=== PATIENT | female | born 1965 | race Caucasian/White ===

== ENCOUNTER 2016-05-20 07:51 | Observation (INO) | payer OTHER ==
[2016-05-20] VITALS (10 sets, daily range): BP systolic 110–157; BP diastolic 68–85; PULSE 70–110; RESP 13–18; O2SAT 94–98
[~2016-05-20] VITALS: Ht 160 cm; Wt 115.5 kg
[~2016-05-20 07:51] MED LIST: ESTR1TAB24 PO; FLUO10CA20 PO; LISI-571 PO; OXYC1TAB24 PO; PANT40TA2 PO
[2016-05-20 09:00] LABS: INR 0.94 ratio
--- NOTE | 2016-05-20 09:03 | DRSVH ---
PROCEDURE: CT BRAIN WITHOUT CONTRAST ([id number]) INDICATIONS: acute onset BLACK TECHNIQUE: Noncontrast 4.5 mm thick angled axial sections acquired from the foramen magnum to the vertex, with c oronal reformats. COMPARISON: None. FINDINGS: Image quality: Excellent. CSF spaces: Basal cisterns are patent. No extra-axial fluid collections. Ventricles are normal in size and shape. Brain: No midline shift. No intracranial masses or hemorrhage. Graham-white matter interface is norm al. Skull and face: Calvarium and visualized facial bones are intact, without suspicious lesions. Sinuses: Visualized sinuses and mastoids are clear. Incidental right maxillary osteoma. IMPRESSION: No acute intracranial process. Dictated by: Zoran Justin M.D. on 05/20/2016 at 8:59 Approved by: Zoran Justin M.D. on 05/20/2016 at 9:02
[2016-05-20 09:09] LABS: TROPONIN T 0.01 ug/L (0.0-0.011)
[2016-05-20 09:13] LABS: BASOPHILS % (AUTO) 0.3 % (0-3); MONOCYTES % (AUTO) 7.1 % (4-12); Mean Corpuscular Hemoglobin 29.1 pg (27.0-35.0); Mean Corpuscular Volume 86.9 fL (81-100); Platelet Count 280 bil/L (150-400)
--- NOTE | 2016-05-20 09:19 | ED.REPORT ---
HPI-Chest Pain 40 and Over Date of Service May 20, 2016 ED Provider: Marcelle Alexis MD Patient is a 50 year old female w/ a hx of HTN who presents to the ED with chest pain starting at 0600 this morning while sitting at the ED coffee stand. Pt is an employee at [employer]. She rates her pain at 7/10 and claims it feels "tight " and does not radiate into her jaw, arms or back. She c/o associated 6/10, "pounding," headache that is increasing in severity. The headache started first , followed by blurred vision, then chest pain. She denies any numbness or tingling. She was evaluated for similar symptoms 3 months ago (02/18/16) and was not admitted. Following the previous episode, she followed up with her PCP and had a treadmill test which revealed no acute findings. She did not receive an echocardiogram at the time. She has never had any cardiac issues previously. Her PCP is Stacie Kruse. Nursing Notes Stated Complaint: BLURRED VISION/HEADACHE/BP HIGH Chief Complaint: Chest Pain Nursing Notes Reviewed: Yes Allergies: Coded Allergies: Iodinated Contrast Media - IV Dye (Verified Allergy, Mild, Hives, 03/18/15 ) Patient says CT scan at [facility] with contrast caused hives. Scheduled Fluoxetine (Fluoxetine) 10 Mg Capsule 10 MG PO DAILY Gabapentin (Gabapentin) Unknown Strength Capsule Unknown Dose PO DAILY Hydrochlorothiazide (Hydrochlorothiazide) 25 Mg Tablet 25 MG PO DAILY Pantoprazole DR (Protonix) 40 Mg Tablet 40 MG PO DAILY Scheduled PRN oxyCODONE-Acetaminophen 5-325 mg (oxyCODONE-Acetaminophen 5-325 mg) 1 Each Tablet 1-2 TAB PO Q6H PRN PRN For Pain General Time Seen by MD: 08:10 Chief Complaint Chest pain Hx Obtained From: Patient Arrived By: Walk-in Sudden in Onset?: Yes Onset Occurred: Just prior to arrival Symptom Duration: Since onset Radiation: : Does not radiate Severity: Current: Pain level 7 out of 10 Recent Healthcare: Recent doctor visit Similar Sx Previous: Yes Past Medical History Past Medical History Hypertension Past Surgical History Hysterectomy Hip replacements bilaterally Family History Noncontributory Smoking History Never Smoker Social 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 Physical Exam Initial Vital Signs Vital Signs (First) Date Time Temp Pulse Resp B/P Pulse Ox O2 Delivery O2 Flow Rate FiO2 05/20/16 08:07 36.7 110 18 157/85 96 Room Air Initial VS: Reviewed Head / Eyes: Atraumatic, Normocephalic, PERRL ENT: Mucous membranes moist, Conjunctiva normal, No scleral icterus Neck: Supple, Non-tender, Full range of motion Extremities: Vascular intact, Neuro intact, No swelling, No tenderness Skin: Warm, Dry, No cyanosis Neurologic: Alert, Oriented, Nonfocal Psychiatric: Mood/affect normal, Behavior normal, Normal thought content General/Constitutional: Awake, Alert, Well appearing, Cooperative, Not toxic appearing Distress / Hydration: Positive: Distress mild Respiratory / Chest: Atraumatic, Breath sounds NL, Breath sounds = bilat, No respiratory distress, No rales, No rhonchi, No wheezing, No retractions Cardiovascular: Heart rate NL, Regular rhythm, Heart sounds NL, No gallop, No murmurs, No rubs Abdomen: Atraumatic, Soft, Non-tender, No guarding, No rebound, BS normoactive Interpretation & Diagnostics Lab Results Interpretation Result Diagram: 05/20/16 0830 05/20/16 0830 Test 05/20/16 08:30 05/20/16 09:00 White Blood Count 7.1th/mm3 (3.8-10.1) Red Blood Count 4.57mil/mm3 (3.90-5.20) Hemoglobin 13.3g/dL (12.0-15.6) Hematocrit 39.7% (35.0-46.0) Mean Corpuscular Volume 86.9fL (81-100) Mean Corpuscular Hemoglobin 29.1pg (27.0-35.0) Mean Corpuscular Hemoglobin Concent 33.5% (32.0-37.0) Red Cell Distribution Width 14.0% (12.3-15.4) Platelet Count 280bil/L (150-400) Neutrophils (%) (Auto) 52.0% (40-74) Lymphocytes (%) (Auto) 38.3% (14-46) Monocytes (%) (Auto) 7.1% (4-12) Eosinophils (%) (Auto) 2.0% (0-5) Basophils (%) (Auto) 0.3% (0-3) Prothrombin Time 10.0sec (8.1-12.5) Prothromb Time International Ratio 0.94ratio Sodium Level 139mEq/L (134-144) Potassium Level 4.1mEq/L (3.5-5.2) Chloride Level 99mEq/L (97-108) Carbon Dioxide Level 25mmol/L (18-29) Blood Urea Nitrogen 12mg/dL (6-24) Creatinine 0.74mg/dL (0.57-1.00) Estimat Glomerular Filtration Rate 119mL/min (>59) Glucose Level 118mg/dL (60-99) Calcium Level 9.1mg/dL (8.5-10.1) Magnesium Level 1.8mg/dL (1.6-2.6) Total Bilirubin 0.2mg/dL (0.0-1.2) Aspartate Amino Transf (AST/SGOT) 34U/L (0-50) Alanine Aminotransferase (ALT/SGPT) 51U/L (0-32) Alkaline Phosphatase 80U/L (25-150) Troponin T 0.010ug/L (0.0-0.011) Total Protein 7.5g/dL (6.4-8.4) Albumin 4.1g/dL (3.4-5.0) Hold Lawson Top Tube Received (Received) Hold Urine Received (Received) ECG Interpretation Time: 08:30 Interpreted by: ED physician Normal ECG Interpretation: Normal ECG w/ rate of... (88), No acute ischemic changes, No change from prior ECGs X-Ray Chest Interpretation Chest Xray Interpretation: IMPRESSION: No acute cardiopulmonary disease. Dictated by: Panchito LAU Interpreted: Blas Chapman MD on 05/20/2016 at 10:16 Transcribed by: SHEELA on 05/20/2016 at 10:17 View: Portable Interpretation / Wet Read by: Interpret - Radiologist CT Head Interpretation IMPRESSION: No acute intracranial process. Dictated by: Zoran Justin M.D. on 05/20/2016 at 8:59 Approved by: Zoran Justin M.D. on 05/20/2016 at 9:02 Re-Eval/Medical Decision Med Decision/Clinical Course Presents with chest pain off and Hemoccult This morning. Similar episode in January with follow-up simple treadmill test and recurrent chest pain at peak maximal exertion without equivalent EKG changes. Reviewed with Dr. Luna, given her ongoing hypertension her now second ED visit recommendation is hospitalization rule out with serial troponins and then a nuclear medicine stress test tomorrow if all troponins are unremarkable. Care is reviewed with the patient is agreeable with plan Time of Eval: 12:05 Patient Status: Condition unchanged, Mild relief Re-Evaluation/Progress Note: Pt rechecked. Even though imaging and labs are normal, due to elevated blood pressure, plan to keep pt in the hospital for further testing and evaluation tomorrow. Consultation : Referral / Consult Name: Nelson Hauser MD Consulted With: Hospitalist Call Returned at: 12:41 Patent Agent: Agrees with eval, Agrees with plan Note: Case discussed. Agrees with plan to admit pt for further monitoring and evaluation. Counseled Regarding: Diagnosis, Lab results, Need for admission Discharge & Departure Primary Impression: Chest pain Additional Impression: Headache Ruled Out: Stroke, Intracranial hemorrhage, STEMI (ST elevation myocardial infarction) Disposition: ADMITTED TO HOSPITAL Discharge Condition All VS Reviewed: Yes Condition: Stable Referrals: Stacie Kruse (PCP) Scribe Attestation Portion of this note were transcribed by Brianna Aguero. I, Dr. Alexis, personally performed the history, physical exam, and medical decision-making: I reviewed and confirmed the accuracy for the information in the transcribed note. Signed by: krishna Johnston, 05/20/16 1300 copies to: Stacie Kruse Shawna L MD May 20, 2016 09:19 BRIANNA AGUERO May 20, 2016 09:40
[2016-05-20 09:20] LABS: Magnesium 1.8 mg/dL (1.6-2.6)
--- NOTE | 2016-05-20 10:17 | DRSVH ---
PROCEDURE: X-RAY CHEST ONE VIEW, PORTABLE ([id number]) INDICATIONS: cp TECHNIQUE: One view of the chest was acquired. COMPARISON: [facility], CR, XR CHEST 1VW (PORTABLE), 02/18/2016, 9:46. FINDINGS: Surgical changes and devices: None. Lungs and pleura: No pleural effusions or pneumothorax. Lungs are clear. Mediastinum: Mediastinal contours appear normal. Heart size is normal. Bones and chest wall: No suspicious bony lesions. Overlying soft tissues appear unremarkable. IMPRESSION: No acute cardiopulmonary disease. Dictated by: Panchito Lopez [facility] Interpreted: Blas Chapman MD on 05/20/2016 at 10:16 Transcribed by: SHEELA on 05/20/2016 at 10:17 Approved by: Blas Chapman M.D. on 05/20/2016 at 17:46
[2016-05-20] MEDS ORDERED: HYDR25TA4 PO (10:56)
[2016-05-20] MEDS ORDERED: GABA-500 PO (10:56)
[2016-05-20] MEDS ORDERED: GABA-502 PO (13:19)
[2016-05-20] MEDS ORDERED: FLUO20CA25 PO (13:19)
[2016-05-20] MEDS ORDERED: IBUP200C PO (13:19)
[2016-05-20] MEDS ORDERED: Aspirin-Caffeine-Butalbital Tablet PO PRN ×2 (14:40→20:00)
[2016-05-20] MEDS ORDERED: Aspirin-Caffeine-Butalbital Tablet PO ONE (14:40)
--- NOTE | 2016-05-20 15:20 | PCM.HPMED ---
Subjective Date of Service May 20, 2016 Primary Provider: Admitting Physician: Primary Care Physician: Stacie Kruse Attending Physician: Chief Complaint: Severe headache and chest pain History of Present Illness: 50yo F w/ HTN, depression, GERD p/w acute onset of BLACK, chest pain. 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 no weakness on arms or legs. pt had similar episode 6month ago. but no BLACK since then. pt tried tylenol but BLACK continued. after 1hrs after BLACK started, pt started feeing chest pain in mid chest, tightness, pt was still sitting on the chair. 6/10, non-radiating, a/w mild SOB, palpitation, nausea but no vomiting. chest pain only lasted 30min, resolved completely. Because of ongoing BLACK, CP, pt came to ED. Pt also stated that recently pt had one year anniversary of his dad, which made her emotional, stressful, could possibly triggered her BLACK, denied lack of sleeping, any toxic habits possibly related to BLACK. Of note, pt has significant FHx of Migraine father, sister, nephew, niece. no hx of heart dz, Last ED visit in January 2016 with chest pain, ruled out PE with CTA premedicated with solu-medrol/benadryl prior to study, sent home with NSAID had stress test done by PCP, result was normal. pt used to take hormone pill s/p hysterectomy, not anymore. not taking aspirin. no hx of stroke/ heart dz in the past. In ED, VS 157/85, 110, 18, 96% on RA, afebrile, pt received [id number], toradol/ benadry, nitro SL. pt thinks that combination of med helped her BLACK mildly but still has BLACK at the time of encounter. Review of Systems: Pertinent positives as noted in history of present illness. All other systems were reviewed and are negative Allergies Coded Allergies: Iodinated Contrast Media - IV Dye (Verified Allergy, Mild, Hives, 03/18/15 ) Patient says CT scan at [facility] with contrast caused hives. PMH Described above in history of present illness Past Surgical History Hysterectomy Hip replacements bilaterally Family History dad/sister/nephew/niece Migraine Smoking History Never Smoker Social History Drug Use: Denies drug use Other Social History: Good social support, Local resident lives with , Ambulatory Status Independent Social History Hx Alcohol Use: Yes (rare) Hx Substance Use: No Smoking Status: Never Smoker Exam Vital Signs Vital Sign - Last Date Time Temp Pulse Resp B/P Pulse Ox O2 Delivery O2 Flow Rate FiO2 05/20/16 10:51 84 13 136/84 94 Room Air 05/20/16 08:07 36.7 Exam middle aged, obese female, comfortably laying down on the bed no JVD, MMM, no LAD RRR, nl s1, s2 no mrg, chest pain mildly reproduced by palpation. CTAB, no w,c S,ND,NT,normoactive BS+ warm, no edema, pulses 2/2 Lab and Diagnostics Result Diagram: 05/20/1630 05/20/16 0830 Assessment & Plan 50yo F w/ HTN, depression, GERD p/w acute onset of BLACK, chest pain. acute, active intractable BLACK, POA, likely met criteria for migraine->4hrs, unilateral, pulsatile, interfering activity, nausea, possible aura. this is at least second episode. CTH negative. no s/s of CVA, seizure. -try with fioricet first then if uncontrolled will do toradol 30, [id number], cocktails -will consider triptain if BLACK continues, cautiously given combination with SSRI -FU with PCP or neurology upon d/c chest pain, POA, acute, EKG NSR, no st/t chg, tropx1 neg, currently CP free -likely related to GERD, will get serial trops, -nitro SL for pain -s/p [id number] in ED, consider to [id number] -will consider stress test tomorrow if clinically suspicion is high, otherwise, no need for inpatient w/u chronic, stable HTN, continue home HCTZ depression, continue fluoxetine dispo: Patient is admitted under observation status with expectation that she will be discharged within 24-48 hours, diet:general, dvt ppx:HSQ Full code Time spent 35 minutes Nelson Hauser MD May 20, 2016 12:46
[2016-05-20] MEDS: MetoCLOpramide 5 mg/mL 2 mL Inj IVPUSH PRN (18:21)
[2016-05-20] MEDS: Heparin 5,000 Unit/mL Inj SUBQ SCH (20:41)
[2016-05-21] VITALS (7 sets, daily range): BP systolic 105–112; BP diastolic 68–74; PULSE 62–80; RESP 16; O2SAT 94–99
--- NOTE | 2016-05-21 04:19 | NUR ---
NOC shift note Patient had uneventful night- slept through most of it. Denied chest pain and headache. Denies dizziness, light-headedness. Remained alert and oriented. Patient is NPO at midnight per MD order, agreeable and compliant. Call light within reach, intentional rounding in place.
[2016-05-21] MEDS: MetoCLOpramide 5 mg/mL 2 mL Inj IVPUSH PRN (07:25)
[2016-05-21] MEDS: Heparin 5,000 Unit/mL Inj SUBQ SCH (08:11)
[2016-05-21] MEDS ORDERED: Pantoprazole 40 mg ER24 Tablet PO SCH (08:30)
[2016-05-21] MEDS ORDERED: ASPIRIN PO (09:18)
[2016-05-21] MEDS ORDERED: BUTALBITAL PO (09:18)
[2016-05-21] MEDS ORDERED: CAFFEINE PO (09:18)
--- NOTE | 2016-05-21 09:21 | PCM.DIMED ---
Discharge Instructions Date of Service May 21, 2016 Dates of Hospitalization May 20, 2016 at 12:51 Discharge Diagnosis Discharge Diagnosis Acute migraine attack chest pain, likely related to GERD Medication Instructions You can take Fioricet 1tab every 4hours as needed for headache Diet Heart Healthy Activity No restrictions Patient Instructions You were hospitalized with acute onset of headache and chest pain, likely related to migraine triggered by recent stress Please note that migraine headache can be triggered by stressful condition, lack of sleep, poor eating, dehydratio, etc. You can try medicine we give. Please consult with your doctor, possibly for referral for neurologist. Follow-up plan Please follow up with your doctor in 2weeks. Follow-up Provider: Stacie Kruse Follow-up with PCP in: 2 weeks Nelson Hauser MD May 21, 2016 09:21
--- NOTE | 2016-05-21 10:20 | NUR ---
Social Work: Screening / D/C Data: Pt is a 50 y/o female admitted for blurred vision/headache/BP high. Pt's PSP is Dr Kruse, pt's insurance is [employer]. EMR reviewed. D/C orders are in. No d/c planning needs identified at this time. CERTIFIED ADAPTED PHYSICAL EDUCATOR will continue to follow if needs arise. Assessment: Pt who is independent at baseline. Plan: Pt will d/c home via POV today with spouse. No d/c planning needs identified at this time. CERTIFIED ADAPTED PHYSICAL EDUCATOR will continue to follow if needs arise. OWEN Oviedo
--- NOTE | 2016-05-21 12:48 | NUR ---
Discharge Reviewed d/c instructions with pt including care notes and new prescriptions, pt signed and given originals, copies to chart. IV d/c intact, tele removed. VS stable at time of d/c, BLACK resolved, no CP. All belongings packed by pt in room and taken with her. Pt walked off unit on foot.
--- NOTE | 2016-05-22 14:19 | PCM.DC.MED ---
Discharge Summary Date of Service May 21, 2016 Dates of Hospitalization Date of Hospital Admission May 20, 2016 at 12:51 Date of Discharge: May 21, 2016 Providers: Admitting Physician: Nelson Guerra MD Primary Care Physician: Stacie Kruse Attending Physician: Nelson Guerra MD Diagnosis at Time of Discharge Diagnosis at Time of Discharge Acute migraine attack chest pain, likely related to GERD HTN depression Procedures XRay, CTs & MRIs PROCEDURE: CT BRAIN WITHOUT CONTRAST ([id number]) INDICATIONS: acute onset BLACK TECHNIQUE: Noncontrast 4.5 mm thick angled axial sections acquired from the foramen magnum to the vertex, with coronal reformats. COMPARISON: None. FINDINGS: Image quality: Excellent. CSF spaces: Basal cisterns are patent. No extra-axial fluid collections. Ventricles are normal in size and shape. Brain: No midline shift. No intracranial masses or hemorrhage. Graham-white matter interface is normal. Skull and face: Calvarium and visualized facial bones are intact, without suspicious lesions. Sinuses: Visualized sinuses and mastoids are clear. Incidental right maxillary osteoma. IMPRESSION: No acute intracranial process. Dictated by: Zoran Justin M.D. on 05/20/2016 at 8:59 Approved by: Zoran Justin M.D. on 05/20/2016 at 9:02 PROCEDURE: X-RAY CHEST ONE VIEW, PORTABLE ([id number]) INDICATIONS: cp TECHNIQUE: One view of the chest was acquired. COMPARISON: [facility], CR, XR CHEST 1VW (PORTABLE), 02/18/2016, 9: 46. FINDINGS: Surgical changes and devices: None. Lungs and pleura: No pleural effusions or pneumothorax. Lungs are clear. Mediastinum: Mediastinal contours appear normal. Heart size is normal. Bones and chest wall: No suspicious bony lesions. Overlying soft tissues appear unremarkable. IMPRESSION: No acute cardiopulmonary disease. Dictated by: Panchito Lopez [facility] Interpreted: Blas Chapman MD on 05/20/2016 at 10: 16 Transcribed by: SHEELA on 05/20/2016 at 10:17 Approved by: Blas Chapman M.D. on 05/20/2016 at 17:46 ECG 12 Lead NSR, no st/t changes Brief History HPI obtained by 05/20 50yo F w/ HTN, depression, GERD p/w acute onset of BLACK, chest pain. 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 no weakness on arms or legs. pt had similar episode 6month ago. but no BLACK since then. pt tried tylenol but BLACK continued. after 1hrs after BLACK started, pt started feeing chest pain in mid chest, tightness, pt was still sitting on the chair. 6/10, non-radiating, a/w mild SOB, palpitation, nausea but no vomiting. chest pain only lasted 30min, resolved completely. Because of ongoing BLACK, CP, pt came to ED. Pt also stated that recently pt had one year anniversary of his dad, which made her emotional, stressful, could possibly triggered her BLACK, denied lack of sleeping, any toxic habits possibly related to BLACK. Of note, pt has significant FHx of Migraine father, sister, nephew, niece. no hx of heart dz, Last ED visit in January 2016 with chest pain, ruled out PE with CTA premedicated with solu-medrol/benadryl prior to study, sent home with NSAID had stress test done by PCP, result was normal. pt used to take hormone pill s/p hysterectomy, not anymore. not taking aspirin. no hx of stroke/ heart dz in the past. In ED, VS 157/85, 110, 18, 96% on RA, afebrile, pt received [id number], toradol/ benadry, nitro SL. pt thinks that combination of med helped her BLACK mildly but still has BLACK at the time of encounter. Hospital Course 50yo F w/ HTN, depression, GERD p/w acute onset of BLACK, chest pain. acute problems Intractable BLACK, symptoms were persistent, pt met criteria for migraine->4hrs, unilateral, pulsatile, interfering activity, nausea, possible aura. Pt also found to have very strong FHx of migraine. This was at least second episode per hx. CTH negative. no s/s of CVA, seizure. pt was tried migrain cocktails with toradol 30, [id number], [id number] iv, had very good response. Fioricet also tried but partially controlled. Triptan was not given due to SSRI tx. Upon d/c, pt denied any headache. Pt was recommended to follow up with PCP or neurology evaluation upon d/c. chest pain, this was followed by BLACK, ischemic w/u all negative including EKG NSR , no st/t chg, tropx1 neg, pt remained chest pain free since admission. pt received [id number] in ED. Given non-anginal nature of pain, minimal ASCVD risks, stress test were recommended as outpatient. chronic, stable HTN, continued home HCTZ depression, continued fluoxetine Exam Vital Signs (Last) Date Time Temp Pulse Resp B/P Pulse Ox O2 Delivery O2 Flow Rate FiO2 05/21/16 09:40 36.6 68 16 112/68 94 Room Air Exam NAD, comfortably laying down on the bed no JVD, MMM, no LAD RRR, nl s1, s2 no mrg CTAB, no w,c S,ND,NT,normoactive BS+ warm, no edema, pulses 2/2 Test 05/20/16 08:30 05/20/16 09:00 05/20/16 20:15 White Blood Count 7.1th/mm3 (3.8-10.1) Red Blood Count 4.57mil/mm3 (3.90-5.20) Hemoglobin 13.3g/dL (12.0-15.6) Hematocrit 39.7% (35.0-46.0) Mean Corpuscular Volume 86.9fL (81-100) Mean Corpuscular Hemoglobin 29.1pg (27.0-35.0) Mean Corpuscular Hemoglobin Concent 33.5% (32.0-37.0) Red Cell Distribution Width 14.0% (12.3-15.4) Platelet Count 280bil/L (150-400) Neutrophils (%) (Auto) 52.0% (40-74) Lymphocytes (%) (Auto) 38.3% (14-46) Monocytes (%) (Auto) 7.1% (4-12) Eosinophils (%) (Auto) 2.0% (0-5) Basophils (%) (Auto) 0.3% (0-3) Prothrombin Time 10.0sec (8.1-12.5) Prothromb Time International Ratio 0.94ratio Sodium Level 139mEq/L (134-144) Potassium Level 4.1mEq/L (3.5-5.2) Chloride Level 99mEq/L (97-108) Carbon Dioxide Level 25mmol/L (18-29) Blood Urea Nitrogen 12mg/dL (6-24) Creatinine 0.74mg/dL (0.57-1.00) Estimat Glomerular Filtration Rate 119mL/min (>59) Glucose Level 118mg/dL (60-99) Calcium Level 9.1mg/dL (8.5-10.1) Magnesium Level 1.8mg/dL (1.6-2.6) Total Bilirubin 0.2mg/dL (0.0-1.2) Aspartate Amino Transf (AST/SGOT) 34U/L (0-50) Alanine Aminotransferase (ALT/SGPT) 51U/L (0-32) Alkaline Phosphatase 80U/L (25-150) Total Protein 7.5g/dL (6.4-8.4) Albumin 4.1g/dL (3.4-5.0) Hold Lawson Top Tube Received (Received) Hold Urine Received (Received) Troponin T < 0.010ug/L (0.0-0.011) Discharge Medications Discharge Medications Fluoxetine (Fluoxetine) 20 Mg Capsule 20 MG PO QAM (Reported) Hydrochlorothiazide (Hydrochlorothiazide) 25 Mg Tablet 25 MG PO QAM (Reported) Pantoprazole DR (Protonix) 40 Mg Tablet 40 MG PO QPM (Reported) As needed ([Aspirin/Caffeine/Butalbital]) 1 TAB TABLET 1 TAB PO Q4H PRN PRN Headache Prescribed by: NELSON GUERRA MD Gabapentin (Gabapentin) 300 Mg Capsule 300 MG PO DAILY PRN PRN For Pain ( Reported) Ibuprofen (Ibuprofen) 200 Mg Capsule 200 MG PO BID PRN PRN For Pain (Reported) Additional med instructions You can take Fioricet 1tab every 4hours as needed for headache Followup Plan Disposition: home Follow-up plan Please follow up with your doctor in 2weeks. Discharge Diet: Heart Healthy Discharge Activity: No restrictions Patient Instructions You were hospitalized with acute onset of headache and chest pain, likely related to migraine triggered by recent stress Please note that migraine headache can be triggered by stressful condition, lack of sleep, poor eating, dehydratio, etc. You can try medicine we give. Please consult with your doctor, possibly for referral for neurologist. Follow-up Provider: Stacie Kruse Follow-up with PCP in: 2 weeks Time spent 65min Nelson Guerra MD May 22, 2016 14:19
== END 2016-05-21 12:52 | disposition home or self-care (01) ==
LOC: SED 07:51 → MPC 12:51
PROVIDERS: ADMIT Internal Medicine; ATTEND Internal Medicine
DX: G43.809 Other migraine, not intractable, without status migrainosus (principal); R07.9 Chest pain, unspecified; K21.9 Gastro-esophageal reflux disease without esophagitis; F32.9 Major depressive disorder, single episode, unspecified; I10 Essential (primary) hypertension; H53.8 Other visual disturbances; Z91.041 Radiographic dye allergy status; Z96.643 Presence of artificial hip joint, bilateral
CPT/HCPCS: 36415; 70450; 71010; 80053; 83735; 84484; 85025; 85610; 93005; 96374; 96375; 96376; 99285; G0378; J1200; J1644; J2270; J2765

== ENCOUNTER 2016-11-29 17:03 | Emergency (ER) | payer OTHER ==
[~2016-11-29] VITALS: Ht 162.6 cm; Wt 104.5 kg
[~2016-11-29 17:03] MED LIST changes: +ASPIRIN PO; +BUTALBITAL PO; +CAFFEINE PO; -ESTR1TAB24 PO; -FLUO10CA20 PO; +FLUO20CA25 PO; +GABA-502 PO; +HYDR25TA4 PO; +IBUP200C PO; -LISI-571 PO; -OXYC1TAB24 PO
[2016-11-29 17:34] VITALS: BP 167/94; PULSE 92; RESP 18; O2SAT 99
--- NOTE | 2016-11-29 18:23 | ED.REPORT ---
HPI-Abd Pain F 40 and Over Date of Service Nov 29, 2016 ED Provider: Umang Powell DO Pt is a 50 year old female with a history of HTN, appendectomy and hysterectomy who presents to the ED complaining of RLQ abdominal pain onset 2 hours ago. She c/o associated nausea and back pain. She denies vomiting, diarrhea, and fever. Nursing Notes Stated Complaint: LOWER RIGHT ABDOMNAL PAIN Chief Complaint: Female Abdominal Pain Nursing Notes Reviewed: Yes Allergies: Coded Allergies: Iodinated Contrast- Oral and IV Dye (Verified Allergy, Mild, Hives, ) Patient says CT scan at [facility] [place] with contrast caused hives. Scheduled Fluoxetine (Fluoxetine) 20 Mg Capsule 20 MG PO QAM Hydrochlorothiazide (Hydrochlorothiazide) 25 Mg Tablet 25 MG PO QAM Pantoprazole DR (Protonix) 40 Mg Tablet 40 MG PO QPM Scheduled PRN ([Aspirin/Caffeine/Butalbital]) 1 TAB TABLET 1 TAB PO Q4H PRN PRN Headache Gabapentin (Gabapentin) 300 Mg Capsule 300 MG PO DAILY PRN PRN For Pain Ibuprofen (Ibuprofen) 200 Mg Capsule 200 MG PO BID PRN PRN For Pain General Time Seen by MD: 18:14 Chief Complaint Abdominal pain Hx Obtained From: Patient Arrived By: Walk-in Sudden in Onset?: No Onset Occurred: 1 - 4 hours ago Symptom Duration: Since onset Location: : RLQ Quality: Painful Radiation: : Does not radiate Severity: Current: Moderate Severity: Maximum: Moderate Recent Healthcare: No recent doctor visit, No recent hospitalization Similar Sx Previous: Yes Past Medical History Past Medical History Reports: GERD, Hypertension Reports: Depression Past Surgical History Hip replacements bilaterally Reports: Appendectomy, Hysterectomy Family History Noncontributory Smoking History Never Smoker Social History Alcohol Use: "Social" Drug Use: Denies drug use Other Social History: Good social support, Local resident 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 Physical Exam Vital Signs Vital Signs (First) Date Time Temp Pulse Resp B/P Pulse Ox O2 Delivery O2 Flow Rate FiO2 11/29/16 17:34 36.8 92 18 167/94 99 Room Air Initial VS: Reviewed Head / Eyes: Atraumatic, Normocephalic Neck: Supple, Full range of motion Neurologic: Alert, Oriented, Nonfocal Psychiatric: Mood/affect normal, Behavior normal General/Constitutional: Awake, Alert Respiratory / Chest: Atraumatic, Breath sounds NL, Breath sounds = bilat Cardiovascular: Heart rate NL, Regular rhythm, Heart sounds NL Abdomen: Soft Moderately tender to diffuse abdomen with right greater than left. Back: Atraumatic, Full range of motion Skin: Warm, Dry No jaundice Lower Extremity / Pelvis / MS: Neurologic intact, Vascular intact Edema to the lower extremities Interpretation & Diagnostics CT KUB: IMPRESSION: 1. No evidence of nephrolithiasis or obstructive uropathy. 2. Hepatic steatosis. Dictated by: Iglesia Bledsoe M.D. on 11/29/2016 at 19:16 Lab Results Interpretation Result Diagram: 11/29/16 1845 11/29/16 1845 Test 11/29/16 18:33 11/29/16 18:45 11/29/16 19:19 Urine Color Yellow (YELLOW) Urine Appearance Hazy (CLEAR,HAZY) Urine pH 5.5 (5.0-8.0) Urine Specific [place] 1.025 (1.003-1.035) Urine Protein Negativemg/dL (NEG,TRACE) Urine Glucose (UA) Negativemg/dL (NEGATIVE) Urine Ketones Negativemg/dL (NEGATIVE) Urine Occult Blood Trace (NEGATIVE) Urine Nitrite Negative (NEGATIVE) Urine Bilirubin Negative (NEGATIVE) Urine Urobilinogen 1.0mg/dL (NORMAL) Urine Leukocyte Esterase Negative (NEGATIVE) Urine RBC 0-2/hpf (0-2) Urine WBC 0-5/hpf (0-5) Urine Epithelial Cells Moderate/hpf (NONE-MOD) Urine Crystals None seen (NONE SEEN) Urine Bacteria Moderate/hpf (NONE-FEW) Urine Hyaline Casts None/lpf (NONE) Urine Granular Casts None seen (NONE SEEN) Urine Waxy Casts None seen (NONE SEEN) Urine Red Blood Cell Casts None seen (NONE SEEN) Urine White Blood Cell Casts None seen (NONE SEEN) Urine Mucus None seen (None Seen) Urine Trichomonas None seen (NONE SEEN) Urine Yeast None (NONE SEEN) Urinalysis Comment None Urine Culture Reflexed Indicated White Blood Count 9.0th/mm3 (3.8-10.1) Red Blood Count 4.39mil/mm3 (3.90-5.20) Hemoglobin 12.7g/dL (12.0-15.6) Hematocrit 37.9% (35.0-46.0) Mean Corpuscular Volume 86.3fL (81-100) Mean Corpuscular Hemoglobin 28.9pg (27.0-35.0) Mean Corpuscular Hemoglobin Concent 33.5% (32.0-37.0) Red Cell Distribution Width 14.3% (12.3-15.4) Platelet Count 247bil/L (150-400) Neutrophils (%) (Auto) 61.7% (40-74) Lymphocytes (%) (Auto) 29.2% (14-46) Monocytes (%) (Auto) 7.4% (4-12) Eosinophils (%) (Auto) 1.3% (0-5) Basophils (%) (Auto) 0.2% (0-3) Sodium Level 137mEq/L (134-144) Potassium Level 3.8mEq/L (3.5-5.2) Chloride Level 98mEq/L (97-108) Carbon Dioxide Level 22mmol/L (18-29) Blood Urea Nitrogen 16mg/dL (6-24) Creatinine 0.68mg/dL (0.57-1.00) Estimat Glomerular Filtration Rate 132mL/min (>59) Glucose Level 119mg/dL (60-99) Calcium Level 9.2mg/dL (8.5-10.1) Magnesium Level 1.7mg/dL (1.6-2.6) Total Bilirubin 0.3mg/dL (0.0-1.2) Aspartate Amino Transf (AST/SGOT) 27U/L (0-50) Alanine Aminotransferase (ALT/SGPT) 41U/L (0-32) Alkaline Phosphatase 78U/L (25-150) Total Protein 7.4g/dL (6.4-8.4) Albumin 3.6g/dL (3.4-5.0) Lactic Acid Level 0.9mmol/L (0.4-2.0) Re-Eval/Medical Decision Source of Hx: Old records Re-Evaluation/Progress : Time of Eval: 20:13 Re-Evaluation/Progress Note: Pt rechecked. She is pain free. Discussed results. Pt states that Keflex will be fine. She would like a take-home pack. Informed pt of plan for discharge. Pt understands and agrees with plan for discharge. F/U instructions and RTER warnings given. All questions addressed. Counseled Regarding: Diagnosis, Lab results, Need for follow-up, When/why to return to ED Discharge & Departure Primary Impression: Urinary tract infection Urinary tract infection type: site unspecified Hematuria presence: without hematuria Qualified Code: N39.0 - Urinary tract infection, site not specified Additional Impression: Abdominal pain Abdominal location: unspecified location Qualified Code: R10.9 - Unspecified abdominal pain Disposition: Home Discharge Condition All VS Reviewed: Yes Condition: Stable Patient Instructions: Acute Abdominal Pain (ED), Urinary Tract Infection in Women (ED) Additional Instructions: You CT scan and labs were reassuring. The labs showed that you have bacteria in your urine that is consistent with a urinary tract infection. Take Keflex 4x daily for 7 days. Take [place] 1-2 every 6 hours as [address] not drive or drink alcohol or consume acetaminophen while on [place]. Call you primary care provider on Wednesday for a follow up appointment next week to discuss the urine culture and final CT scan. Return to the Emergency Department for any new or worrisome symptoms. Referrals: Stacie Kruse (PCP) Scribe Attestation Portions of this note were transcribed by Delia Molina. I, Dr. Powell personally performed the history, physical exam and medical decision-making; I reviewed and confirmed the accuracy of the information in the transcribed note. Signed by : Jolly Virgen, 11/29/16. copies to: Stacie Kruse Todd P DO Nov 29, 2016 18:22 Delia Díaz Nov 29, 2016 18:36
[2016-11-29] MEDS ORDERED: 0.9% Sodium Chloride 1,000 ML IV ONE (18:24)
[2016-11-29] MEDS ORDERED: HYDROmorphone 0.5 mg/0.5 mL iSecure Syringe IVPUSH PRN (18:35)
[2016-11-29] MEDS ORDERED: Ondansetron 2 mg/mL 2 mL Inj IVPUSH PRN (18:35)
[2016-11-29 18:48] LABS: APPEARANCE,URINE HAZY (CLEAR,HAZY); COLOR,URINE YELLOW (YELLOW); OCCULT BLOOD,URINE TRACE (NEGATIVE); PH,URINE 5.5 (5.0-8.0)
[2016-11-29 18:53] LABS: BASOPHILS % (AUTO) 0.2 % (0-3); EOSINOPHILS % (AUTO) 1.3 % (0-5); MONOCYTES % (AUTO) 7.4 % (4-12); Mean Corpuscular Hemoglobin 28.9 pg (27.0-35.0); Mean Corpuscular Volume 86.3 fL (81-100); NEUTROPHILS % (AUTO) 61.7 % (40-74); Platelet Count 247 bil/L (150-400)
[2016-11-29 19:08] LABS: Magnesium 1.7 mg/dL (1.6-2.6)
--- NOTE | 2016-11-29 19:21 | DRSVH ---
PROCEDURE: CT KUB ([id number]) INDICATIONS: rlq and right flank pain, hematuria TECHNIQUE: Noncontrast 5 mm thick sections acquired from the diaphragms to the symphysis. 5 mm thick coronal an d sagittal reformats were then performed. For radiation dose reduction, the following was used: aut omated exposure control, adjustment of mA and/or kV according to patient size. COMPARISON: [facility], CT, CT ABD PELVIS WO CON, 06/27/2015, 14:34. FINDINGS: Image quality: There is metallic streak artifact associated with patient's bilateral hip prostheses.. Lung bases: Lung bases are clear. Heart size is normal. Urinary system: Both kidneys are normal in size. No kidney stones. No hydronephrosis or perinephri c fat stranding. Both ureters appear non-dilated throughout their expected courses. The bladder is nondistended with evaluation of the bladder limited due to extensive streak artifact in the pelvis. Other solid organs: There is hypoattenuation of the liver consistent with fatty infiltration. There is mild focal sparing along the gallbladder fossa and the anterior right hepatic dome. The spleen is normal in size. Gallbladder appears within normal limits without calcified gallstones. Pancreas is normal in contours. There is a stable small left adrenal nodule measuring 1.8 cm with attenuation v alues consistent with an adenoma. Peritoneum and bowel: Unenhanced bowel loops demonstrate normal wall thickness and caliber. The ngoc endix is surgically absent. No free fluid or air. Nodes and vessels: No retroperitoneal or mesenteric adenopathy by size criteria. Aorta and inferior vena cava are normal in caliber. Abdominal wall: No ventral hernias. Pelvis: No free pelvic fluid. No inguinal hernias or adenopathy. Bones: No suspicious bony lesions. No vertebral body compression fractures. IMPRESSION: 1. No evidence of nephrolithiasis or obstructive uropathy. 2. Hepatic steatosis. Dictated by: Iglesia Bledsoe M.D. on 11/29/2016 at 19:16 Approved by: Iglesia Bledsoe M.D. on 11/29/2016 at 19:20
[2016-11-29] MEDS ORDERED: _HYDROcodone/APAP 5-325 mg Tablet PO PRN (20:15)
[2016-11-29 20:49] VITALS: BP 110/57; PULSE 81; RESP 14
== END 2016-11-29 20:45 | disposition home or self-care (01) ==
LOC: SED 17:03
DX: N39.0 Urinary tract infection, site not specified (principal); I10 Essential (primary) hypertension; K21.9 Gastro-esophageal reflux disease without esophagitis; F32.9 Major depressive disorder, single episode, unspecified; Z79.82 Long term (current) use of aspirin; Z88.8 Allergy status to other drugs, medicaments and biological substances
CPT/HCPCS: 36415; 74176; 80053; 81000; 83605; 83735; 85025; 87086; 87088; 96361; 96374; 96375; 99285; J1170; J1885; J2405; J7030

== ENCOUNTER → 2016-12-24 | Day surgery (SDC) | payer OTHER ==
[~2016-12-24] VITALS: Ht 162.6 cm; Wt 105.7 kg
[~2016-12-24] MED LIST changes: +IMI100 PO; +Lactated Ringer's 1,000 ML IV ONE; +Lactated Ringer's 1,000 ML IV SCH; +MetoCLOpramide 5 mg/mL 2 mL Inj IVPUSH PRN; +Ondansetron 2 mg/mL 2 mL Inj IVPUSH PRN
[2016-12-24 13:41] VITALS: BP 150/84; PULSE 93; RESP 15; O2SAT 96
[2016-12-24 14:26] VITALS: BP 118/72; PULSE 89; RESP 12; O2SAT 95
[2016-12-24 14:36] VITALS: BP 129/67; PULSE 84; RESP 12; O2SAT 94
[2016-12-24 14:46] VITALS: BP 134/73; PULSE 87; RESP 16; O2SAT 95
--- NOTE | 2016-12-24 14:54 | ENDO ---
[address] [address] ENDOSCOPY PROCEDURE PATIENT: CHEY SIMPSON : 1965 MR#: [id number] ADMIT: 12/24/2016 JOB ID: [id number] DATE: 12/24/2016 PROCEDURE: Esophagogastroduodenoscopy. INDICATION: Dysphagia. The patient's ASA classification, Mallampati score, and medications as per Dr. Dylon Catherine's anesthesia note. INSTRUMENT USED: GIF H 180 J. PROCEDURE DETAILS: After informed consent was obtained, the patient was brought into the GI suite, where she was placed on oxygen via nasal cannula and monitored with continuous pulse oximeter, telemetry, and blood pressure monitoring. A time-out was performed. Then, she was placed in the left lateral decubitus position and medications were administered for sedation. A bite block was placed. The standard esophagogastroduodenoscopy scope was inserted through the bite block and advanced under direct visualization to the second portion of the duodenum without difficulty. FINDINGS: 1. Normal appearing duodenal bulb, first and second portion. 2. Normal-appearing pylorus, antrum and gastric body. 3. Retroflexed views in the gastric body revealed a normal-appearing cardia and fundus. 4. Multiple random biopsies were obtained throughout the antrum and body of the stomach. 5. The GE junction was at approximately 39 cm and there was some mild erythema with edema at the GE junction suggestive of esophagitis. Multiple random biopsies were obtained. 6. Multiple biopsies were also obtained in the midesophagus secondary to patient's complaint of dysphagia. IMPRESSION: Distal esophagitis. RECOMMENDATIONS: 1. PPI daily. 2. Await biopsy results. 3. Followup in GI clinic in 2-4 weeks. COMPLICATIONS: None. ESTIMATED BLOOD LOSS: Less than 5 mL.
--- NOTE | 2016-12-24 16:20 | PCM.HPANE ---
Patient Data Surgeon Admitting Provider: Attending Provider:Whit Mcgregor MD Primary Care Physician:Stacie Kruse Other Provider:Rhonda Morocho Anesthesia Reason for Visit Dysphagia Ht/WT & BMI Height (Feet): 5 Height (Inches): 4 Weight (Kilograms): 105.69 Body Mass Index 39.00 Allergies Coded Allergies: Iodinated Contrast- Oral and IV Dye (Verified Allergy, Mild, Hives, ) Patient says CT scan at [facility] [place] with contrast caused hives. Past Anesthesia History Anesthesia History: Denies:: Abnormal Airway, Anesthesia Reactions, Difficult Intubation, Fam Anesthesia Reaction, Fam Malignant Hypertherm, Malignant Hyperthermia Diabetes History Hx Diabetes?: No MRSA MRSA: No Medications Reported Medications Sumatriptan (Imitrex)100 Mg [id number] Mg PO 12/24/16 Ibuprofen 200 Mg [id number] Mg PO BID PRN For Pain 05/20/16 Gabapentin 300 Mg Aytzucc134 Mg PO DAILY PRN For Pain 05/20/16 Fluoxetine 20 Mg [id number] Mg PO QAM 05/20/16 Hydrochlorothiazide 25 Mg [id number] Mg PO QAM 05/20/[address] (Protonix)40 Mg Bydlwe15 Mg PO QPM 03/18/15 Discontinued Scripts [Aspirin/Caffeine/Butalbital] (Fiorinal)1 TAB TABLET No Conflict Check1 Tab PO Q4H PRN Headache #30 Prov:Nelson Hauser MD 05/21/16 History History of ENT Problems?: Yes HEENT History: Positive for:: Dysphagia (CHOKES EASILY ON PILLS) Denies:: Abnormal Airway Difficult Intubation Hearing Problem Denture Type: None Teeth Condition: Within Normal Limits Hx of Heart Problems?: Yes Cardiovascular History: Positive for:: Chest Pain (current reason for er visit ) Hypertension Denies:: AICD Abdominal Aortic Aneurism Atrial Fibrillation Cardiac Surgery Congestive Heart Failure Coronary Artery Disease Edema Heart Murmur Irregular Heartbeat Pacemaker Peripheral Vascular Rheumatic Fever Thrombophlebitis Valvular Heart Disease Hx of Respiratory Problem?: No Respiratory History: Positive for:: Dyspnea (RON, not using CPAP) Denies:: Asthma COPD Chest Surgery Cough Emphysema Hemoptysis Oxygen Administration Pneumonia Pulmonary Embolism Tuberculosis Use of C-PAP Machine Use of Inhalers / NEBS Hx Neurologic Problems?: No Neurological History: Denies:: CVA Dementia Hx of GI Problems?: Yes Hx of Problems?: No HX of Peritoneal Dialysis: No Female Hx: Denies:: Currently Hx Musculoskeletal Problems?: Yes Musculoskeletal History: Positive for:: Joint Replacement (BILATERAL HIPS) Hx of Psycho/Social Problems?: Yes Psycho Social History: Positive for:: Hx Depression (takes fluoxetine daily) Denies:: Anxiety Hx Surgeries?: Yes (HYSTERECTOMY, HIPS ) Hx Any Other Health Problems?: Yes Other History: Positive for:: Hospitalization Denies:: Cancer Thyroid Disease History Blood Transfusions: Denies:: Blood Transfusions Hx Diabetes: No Hx Alcohol Use: Yes (rare)Hx Substance Use: No Smoking Status: Never Smoker Have You Smoked inLast 12 mo: No Stop/Bang Treated for Sleep Apnea?: Yes Do You Have a CPAP Machine?: No Risk Assessment Category Category 1A: Patient has history of documented sleep apnea, and HAS NOT received any narcotic, sedative or anesthesia administration during this stay. Category 1B: Patient has history of documented sleep apnea, and HAS received any narcotic , sedative or anesthesia administration during this stay Category 2: Patient has SUSPECTED Obstructive Sleep Apnea, and HAS received any narcotic , sedative or anesthesia administration during this stay. Category 3: Patient has SUSPECTED Obstructive Sleep Apnea and HAS NOT received narcotic, sedative or anesthesia administration during this stay. Category 4: Outpatient in Procedural Areas with known sleep apnea or who screen positive for High Risk via the STOP/BANG questionnaire. Exam Exam Vital Signs Vital Signs Date Time Temp Pulse Resp B/P Pulse Ox O2 Delivery O2 Flow Rate FiO2 12/24/16 13:41 36.7 93 15 150/84 96 Room Air General Appearance: Alert, Oriented X3, Cooperative, No Acute Distress HEENT/AIRWAY: MP 2, Neck Movement (from), Mouth Opening (3 fbmo) Lungs: Clear to Auscultation, Normal Air Movement Heart: Exam Unremarkable, Regular Rate/Rhythm, No Murmurs/Rubs/Gallops Plan Impression Patient chart reviewed, patient interviewed and anesthestic plan with risks, benefits, and alternatives discussed, and informed consent obtained. NPO per Anesth. Guidelines: Yes ASA Physical Status: ASA2 Mod Systemic Disease Anesthetic Plan: GA, MAC Bene/Risks/Altern/Consents: Yes HP Complete Prior to Induction: Yes Dylon Catherine MD Dec 24, 2016 13:45
--- NOTE | 2016-12-24 16:20 | PCM.ANEP1 ---
Post Anesthesia PACU Phase 1 Assessment Vital Signs Vital Signs Date Time Temp Pulse Resp B/P Pulse Ox O2 Delivery O2 Flow Rate FiO2 12/24/16 14:46 87 16 134/73 95 Room Air 12/24/16 14:36 84 12 129/67 94 Room Air 12/24/16 14:26 89 12 118/72 95 Room Air 12/24/16 13:41 36.7 93 15 150/84 96 Room Air Anesthetic Administered: GA, MAC Level of Alertness: Awake, talking VERONICA's with Equal Strength: Yes Pain: No Nausea or Vomiting: No CV Function & Hydration Stable: Yes Airway Device: n/a Oxygen Delivery: Room Air Lungs: Clear to Auscultation, Normal Air Movement Dermatome Level: Full Sensation PACU Phase 2 Assessment Complications: No Follow up Care: N/A Patient Instructions Provided: N/A Dylon Catherine MD Dec 24, 2016 16:20
--- NOTE | 2016-12-30 09:34 | PATH ---
SURGICAL PATHOLOGY Attending Physician:Bhupinder Rome CASE STATUS: Signed Out PATIENT NAME: CHEY SIMPSON PID: [id number] : 1965 DATE COLLECTED:12/24/2016 00:00 SPECIMEN: 1: Gastric, Biopsy 2: Esophagus, Biopsy 3: Esophagus, Biopsy CLINICAL HISTORY: 1). GASTRIC BIOPSY - RULE OUT H PYLORI 2). DISTAL ESOPHAGUS BIOPSY 3). MID ESOPHAGUS BIOPSY FINAL DIAGNOSIS: 1. Gastric Biopsy: Superficial portions of gastric body-type mucosa with mild chronic gastritis. Negative for H. pylori organisms by H&E stain and immunohistochemistry studies. Negative for intestinal metaplasia, dysplasia, and malignancy. 2. Distal Esophagus, Biopsy: Inflamed portions of squamocolumnar junctional mucosa with no diagnostic abnormality. Negative for intestinal metaplasia/Short's metaplasia. Negative for dysplasia and malignancy. 3. Mid-Esophagus, Biopsy: Superficial portions of squamous epithelium with no diagnostic abnormality; no increased eosinophils or inflammatory cells identified. ICD10: K20.9 GROSS DESCRIPTION: The specimen is received in three formalin filled containers labeled with the patient's name. 1). The specimen is labeled "gastric" and consists of 3 portions of tissue which aggregate to 0.3 x 0.3 x 0.2 CM. The specimen is entirely submitted in cassette 1A. 2). The specimen is labeled "distal esophagus" and consists of a 0.3 x 0.2 x 0.2 CM portion of tissue which is entirely submitted in cassette 2A. 3). The specimen is labeled "mid esophagus" and consists of 2 portions of tissue which aggregate to 0.2 x 0.2 x 0.1 CM. The specimen is entirely submitted in cassette 3A. 12/25/2016DC MICRO DESCRIPTION: 1. An immunohistochemical stain was performed to evaluate for Helicobacter organisms and is negative. A control stain showed appropriate reactivity. This test was developed and its performance characteristics determined by [facility]. It has not been cleared or approved by the U. [place]. Food and Drug Administration. The FDA has determined that such clearance or approval is not necessary. This test is used for clinical purposes. It should not be regarded as investigational or for research. ICD-9 CODES: CPT CODES: 1: 51537, 97070 2: 38026 3: 83044 Electronically Signed Out Philly Ceballos MD [facility] [address], [place] [address] Technical component performed at [facility], [address], [place], [address]
== END | disposition home or self-care (01) ==
LOC: END 00:35
PROVIDERS: ATTEND Internal Medicine Gastroenterology
DX: K29.50 Unspecified chronic gastritis without bleeding (principal); R13.10 Dysphagia, unspecified; I10 Essential (primary) hypertension; E66.01 Morbid (severe) obesity due to excess calories; Z68.41 Body mass index [BMI] 40.0-44.9, adult
CPT/HCPCS: 43239; J7120